=== PATIENT | female | born 1945 | race Caucasian/White ===

== ENCOUNTER → 2016-09-28 | Outpatient (CLI) | payer MEDICARE, OTHER ==
--- NOTE | 2016-09-29 09:31 | MAM ---
EXAM DESCRIPTION: MAMMO BREAST SCREENING BILATERAL CAD, images were reviewed with CAD technology, R2 computer-aided detection. CLINICAL HISTORY: [facility]. COMPARISON: 2011. FINDINGS: Routine views are obtained. Scattered glandular pattern, stable. No dominant mass, architectural distortion or clustered microcalcification.. IMPRESSION: Benign exam BIRAD CATEGORY: 2 BENIGN RECOMMENDATIONS: FOLLOW-UP: Routine screening mammogram in one year. According to the [employer], yearly mammograms are recommended starting at age 40 and continuing as long as a woman is in good health. Any breast change noted on a breast self-exam should be reported promptly to the patient's healthcare provider. Breast MRI is recommended for women with an approximately 20-25% or greater lifetime risk of breast cancer, including women with a strong family history of breast or ovarian cancer and women who have been treated for Hodgkin's disease. Electronically signed by: Danielle Farmer 09/29/2016 09:29
== END ==
LOC: MAMMO 14:24
PROVIDERS: ATTEND Family Medicine
DX: Z12.31 Encounter for screening mammogram for malignant neoplasm of breast (principal)
CPT/HCPCS: 77052; G0202

== ENCOUNTER → 2016-10-26 | Outpatient (CLI) | payer MEDICARE, OTHER | END | disposition home or self-care (01) | LOC: GMAB 14:49 | PROVIDERS: ATTEND Family Medicine | DX: K76.9 Liver disease, unspecified (principal) ==

== ENCOUNTER → 2017-10-25 | Outpatient (CLI) | payer MEDICARE, OTHER ==
--- NOTE | 2017-10-31 09:51 | MAM ---
EXAM DESCRIPTION: 3D Screening BILATERAL : Digital Mammography. CLINICAL HISTORY: 72 years Female SCREENING . No family history of breast cancer. No complaints. Postmenopausal. Has taken HRT less than 5 years ago. COMPARISON: 2-D digital screening bilateral studies on 09/28/2016 and 08/24/2015. Report from prior examination also reviewed. TECHNIQUE: Bilateral CC and MLO projection full-field images, 3-D tomosynthesis digital mammographic technique. Also bilateral synthesized CC/ MLO full-field images. CAD not utilized. FINDINGS: The breast parenchymal density pattern is: Scattered areas of fibroglandular density. No skin thickening or nipple retraction bilateral axillary lymph nodes. Focal asymmetry and possible mass density in the middle third of the left breast at the 11:00 position and the 1:00 position approximately 7 cm from the nipple. No associated microcalcifications. No focal, stellate mass or density, focal asymmetry , and no suspicious microcalcifications right breast. Stable mammograms compared to prior study, taking into account differences in mammographic technique IMPRESSION: BI-RADS CATEGORY: 0 - INCOMPLETE- Need additional imaging evaluation. FOLLOW-UP: Recall for additional imaging: Left breast 3-D tomosynthesis full field LM images. Targeted left breast ultrasound regions of interest if needed. Written communication concerning the IMPRESSION and Follow-up, will be mailed to the patient and referring health care provider. Electronically signed by: Leland Cagle MD 10/31/2017 9:50 AM [employer]IN[employer]ENT ACCOUNT CLERK
== END ==
LOC: MAMMO 10:00
PROVIDERS: ATTEND Family Medicine
DX: Z12.31 Encounter for screening mammogram for malignant neoplasm of breast (principal)

== ENCOUNTER → 2017-11-14 | Outpatient (CLI) | payer OTHER | LOC: GMAB 10:28 | PROVIDERS: ATTEND Family Medicine | DX: E83.110 Hereditary hemochromatosis (principal); I10 Essential (primary) hypertension ==

== ENCOUNTER → 2017-11-21 | Outpatient (CLI) | payer OTHER ==
--- NOTE | 2017-11-21 16:03 | MAM ---
EXAM DESCRIPTION: 3D Diagnostic, Left: Digital Mammography CLINICAL HISTORY: 72 yearsFemaleABNORMAL MAMMOGRAM focal asymmetry middle third of the left breast on screening study.. COMPARISON: Bilateral 3-D tomosynthesis screening study October 25 2017.. Targeted left breast ultrasound following this examination. Reports from prior examinations also reviewed. TECHNIQUE: Left breast LM projection full-field images, 3-D tomosynthesis digital mammographic technique. Also left breast synthesized LM full-field images. CAD not utilized. FINDINGS: The breast parenchymal density pattern is: Scattered areas of fibroglandular density. No skin thickening or nipple retraction . No mass density or distinct focal asymmetry on these images. Ultrasound: Scanning 900 clock position of the left breast 3 to 5 cm from the nipple. Mostly fatty homogeneous tissues. Minimal fibroglandular tissues. No distinct solid mass or cyst. No parenchymal edema or large calcifications. No skin changes. IMPRESSION: BI-RADS CATEGORY: 2 - BENIGN FINDINGS. FOLLOW UP: Return to routine digital bilateral screening, one year interval from October 2017. The FINDINGS and the FOLLOW-UP plan were reviewed in person with the patient after the examination. Written communication explaining the IMPRESSION and FOLLOW-UP will be mailed to the patient and referring care provider. According to the [employer], yearly mammograms are recommended starting at age 40 and continuing as long as a woman is in good health. Any breast change noted on a breast self-exam should be reported promptly to the patient's healthcare provider. Breast MRI is recommended for women with an approximately 20-25% or greater lifetime risk of breast cancer, including women with a strong family history of breast or ovarian cancer and women who have been treated for Hodgkin's disease. A negative mammographic report should not delay tissue diagnosis in patients with significant clinical history or physical findings. Extremely dense breast tissue limits the sensitivity of digital mammography. Electronically signed by: Leland Cagle MD 11/21/2017 4:02 PM CDT
--- NOTE | 2017-11-21 16:03 | US ---
EXAM DESCRIPTION: Breast,Left: Ultrasound CLINICAL HISTORY: 72 yearsFemaleABNORMAL MAMMOGRAM COMPARISON: Digital diagnostic 3-D tomosynthesis left breast same visit. Screening 3-D tomosynthesis bilateral 2017. TECHNIQUE: Transcutaneous scanning of the left breast utilizing two-dimensional modes. Scanning performed by the tour consultant and Dr. Cagle. FINDINGS: Scanning 900 clock position of the left breast 3 to 5 cm from the nipple.Mostly fatty homogeneous tissues. Minimal fibroglandular tissues. No distinct solid mass or cyst. No parenchymal edema or large calcifications. No skin changes.. IMPRESSION: 1. Bi-Rads Category 2: Benign. 2. Please refer to diagnostic 3-D tomosynthesis examination and report on the left breast today. The FINDINGS and the FOLLOW-UP plan were reviewed in person with the patient after the examination. Written communication explaining the IMPRESSION and FOLLOW-UP will be mailed to the patient and referring care provider. Electronically signed by: Leland Cagle MD 11/21/2017 4:02 PM CDT
== END ==
LOC: MAMMO 09:00
PROVIDERS: ATTEND Family Medicine
DX: R92.2 Inconclusive mammogram (principal); R92.8 Other abnormal and inconclusive findings on diagnostic imaging of breast
CPT/HCPCS: 76641; 77065; G0279

== ENCOUNTER → 2018-01-01 | Outpatient (CLI) | payer OTHER ==
--- NOTE | 2018-01-02 16:12 | US ---
EXAM DESCRIPTION: Carotid Duplex: ULTRASOUND. CLINICAL HISTORY: STENOSIS COMPARISON: None. TECHNIQUE: Transcutaneous scanning utilizing 2-dimensional and Doppler modes to evaluate the bilateral carotid systems and vertebral arteries. Percentage of diameter of stenosis or no stenosis recorded will be based upon NASCET criteria. FINDINGS: Peak systolic/end diastolic (CM-Sec) CCA Right 85/19 Left 74/15. ICA Right proximal 79/11, distal 67/16. Left proximal 62/18, mid 59/20. Vertebral Right 45/13 Left 29/7. ECA (PS Only) Right 105 left 99. ICA/CCA peak systolic ratio: Right 0.9 Left 0.8 ICA/CCA end diastolic ratio: Right 0.6 Left 1.2 Vertebral arteries: antegrade flow. Comments: Area stenosis in the right common carotid bulb is 16%. Diameter stenosis is 38%. Minimal spectral broadening in the proximal right ICA. Area stenosis in the left common carotid bulb is 11%. Diameter stenosis is 18%. Area stenosis in the proximal left ICA is 23%. Diameter stenosis is 31%. Spectral broadening in the proximal left ICA. IMPRESSION: 1. Doppler evaluation of the bilateral carotid systems and vertebral arteries shows no hemodynamically significant stenoses. 2. No significant amount of plaque seen in the carotid arteries bilaterally. Bilateral vertebral arteries showed antegrade-cephalad flow. Electronically signed by: Leland Cagle MD 01/02/2018 4:11 PM CDT
== END ==
LOC: US 13:23
PROVIDERS: ATTEND Family Medicine
DX: I65.23 Occlusion and stenosis of bilateral carotid arteries (principal)

== ENCOUNTER → 2020-03-30 | Outpatient (CLI) | payer OTHER ==
--- NOTE | 2020-03-30 10:10 | MRI ---
EXAM DESCRIPTION: MRI left wrist CLINICAL HISTORY: Wrist pain. Loose body. Pain and swelling COMPARISON: None. TECHNIQUE: Multiplanar, multisequence MR images of the left wrist FINDINGS: Mild positive ulnar variance. Large full-thickness defect in the central TFC, 6 mm. Distal radial ulnar joint effusion and synovitis. Full-thickness chondral loss over the dorsal lunate fossa of the radius. Subchondral marrow edema over about 8 mm High PD/T2 signal within the scapholunate ligament possibly full-thickness incomplete tear versus partial tear. Intracapsular and pericapsular edema dorsal extrinsic ligament attachment to the lunate. Osseous irregularity of the dorsal lunate with chronic cystic change and edema. Small region of cystic change and osseous edema at the volar extrinsic ligament attachment to the lunate. Small region of osseous edema in the dorsal triquetrum at the extrinsic/capsular ligament attachment with cystic change and edema STT joint space narrowing with small marginal osteophytes. Small region of edema along the volar joint line in both the trapezium and scaphoid. No advanced arthrosis second through fifth carpometacarpal joints. Moderate osteoarthritis of the carpometacarpal joint of the thumb with full-thickness chondral loss, mild subchondral bony edema and small joint line osteophytes Minimal tendon sheath fluid and edema along the flexor tendons. Bowing of the flexor retinaculum carpal tunnel. No median nerve signal abnormality Multiloculated ganglion along the dorsal wrist overlying the capitate measuring approximately 10 x 3 x 5 mm. No intrinsic signal abnormality in the extensor tendons. 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 No intra-articular loose body Electronically signed by: Jermaine Newton MD 03/30/2020 10:08 AM CDT
== END ==
LOC: MRI 08:43
PROVIDERS: ATTEND Family Medicine
DX: M19.032 Primary osteoarthritis, left wrist (principal); M25.832 Other specified joint disorders, left wrist; S63.592A Other specified sprain of left wrist, initial encounter; M65.832 Other synovitis and tenosynovitis, left forearm; M25.432 Effusion, left wrist

== ENCOUNTER → 2020-07-13 | Outpatient (CLI) | payer OTHER | LOC: GMAE 16:37 | PROVIDERS: ATTEND Family Medicine | DX: I10 Essential (primary) hypertension (principal); R73.03 Prediabetes; E78.2 Mixed hyperlipidemia; M10.9 Gout, unspecified ==